=== PATIENT | male | born 1980 | race Two or more races ===

== ENCOUNTER 2017-09-05 21:34 | Emergency (ER) | payer SELFPAY ==
[~2017-09-05] VITALS: Ht 182.9 cm; Wt 105.0 kg
[2017-09-05] MEDS ORDERED: METO25TA2 PO (21:47)
[2017-09-05] MEDS ORDERED: SODIUM CHLORIDE 0.9% 1,000ML IVBOLUS ONE (22:00)
[2017-09-05 22:12] LABS: ALBUMIN 4.4 g/dL (3.4-5.0); ANION GAP 10 mmol/L (5-15); CALCIUM 8.4 mg/dL (8.5-10.1); CHLORIDE 109 mmol/L (98-107); CREATININE 0.92 mg/dL (0.7-1.3)
[2017-09-06] MEDS ORDERED: METOPROLOL 1 MG/ML, 5ML IVPush PRN (02:00)
[2017-09-06] MEDS ORDERED: METOPROLOL 1 MG/ML, 5ML ONE (02:08)
[2017-09-06 02:52] VITALS: BP 112/76
== END 2017-09-06 02:58 | disposition home or self-care (01) ==
LOC: ED 09-06 02:52
DX: F10.120 Alcohol abuse with intoxication, uncomplicated (principal); Z72.9 Problem related to lifestyle, unspecified; G31.2 Degeneration of nervous system due to alcohol; I48.91 Unspecified atrial fibrillation; Z79.01 Long term (current) use of anticoagulants
CPT/HCPCS: 36415; 80048; 80307; 82040; 93005; 96374; 99285; J7030